=== PATIENT | female | born 1975 | race Caucasian/White ===

== ENCOUNTER → 2023-11-27 11:55 | Outpatient (REF) | payer MEDICARE, SELFPAY ==
[2023-11-27 12:59] LABS: % Basophils 0.9 % (0-2); % Eosinophils 3.2 % (0-6); % Immature Granulocytes 0.3 % (0-0.5); % Lymphocytes 29.6 % (20.5-51.1); % Monocytes 6.7 % (1.7-9.3); % Neutrophils 59.3 % (42.2-75.2); Absolute Basophils 0.1 10^3/uL (0-0.2); Absolute Eosinophils 0.3 10^3/uL (0-0.7); Absolute Lymphocytes 3.1 10^3/uL (1.2-3.4); Absolute Monocytes 0.7 10^3/uL (0.1-0.6); Absolute Neutrophils 6.3 10^3/uL (1.4-6.5); Hemoglobin 13.7 g/dL (12.0-16.0); Mean Corp Hgb Conc. 33.4 g/dL (33.0-37.0); Mean Corpuscular Hgb 29.7 pg (27.0-31.0); Mean Corpuscular Volume 88.9 fL (81.0-99.0); Mean Platelet Volume 10.9 fL (7.4-10.4); Nucleated Red Blood Cells % 0 %; Platelet Count 399 10^3/uL (130-400); Red Blood Cell Count 4.61 10^6/uL (4.20-5.40); Red Cell Dist. Width 12.3 % (11.5-14.5); White Blood Cell Count 10.6 10^3/uL (4.8-10.8)
[2023-11-27 13:17] LABS: ALT (SGPT) 43 U/L (0-35); AST (SGOT) 26 U/L (14-36); Albumin 4.3 g/dl (3.5-5.0); Alkaline Phosphatase 129 U/L (38-126); Blood Urea Nitrogen 36 mg/dl (7-17); Carbon Dioxide 33 mmol/L (22-30); Chloride 98 mmol/L (98-107); Glucose 101 mg/dl (70-99); Potassium 4.7 mmol/L (3.5-5.1); Sodium 138 mmol/L (135-145); Total Bilirubin 0.6 mg/dl (0.2-1.3); Total Protein 7.5 g/dl (6.3-8.2); eGFR > 60.00
== END ==
LOC: REG 11:55
PROVIDERS: ATTENDING PHYSICIAN Surgery Plastic and Reconstructive Surgery; FAMILY PHYSICIAN Family Medicine
DX: Z01.818 Encounter for other preprocedural examination (principal)
CPT/HCPCS: 36415; 80053; 85025; 93005

== ENCOUNTER 2023-12-01 06:34 | Inpatient (IN) | payer MEDICARE, SELFPAY ==
[2023-12-01] VITALS (22 sets, daily range): BP systolic 10–163; BP diastolic 49–95; BMI 25.4
[2023-12-01] MEDS: NORMOSOL-R 1000 IV (11:03)
[2023-12-01 11:12] LABS: Glucose - Point of Care 155 mg/dl (70-99)
--- NOTE | 2023-12-01 11:52 | W.SUR.PREOP ---
Pre-Operative Surgical Note
-
I have examined this patient prior to the performance of the scheduled procedure.
The patient's condition is unchanged from the time of the current History and
Physical and the patient is able to undergo the scheduled procedure.
[2023-12-01 13:02] LABS: Glucose - Point of Care 103 mg/dl (70-99)
--- NOTE | 2023-12-01 14:10 | W.IMMPOSTOP ---
Surgical Immed Post Op Note
-
Primary Surgeon: ALEJANDRA Brewer MD
Assisting Surgeon:
Pre-op Diagnosis: Left breast infection, capsular contracture
Post-op Diagnosis: Same
Procedure Performed: Bilateral implant removal, bilateral capsulectomies, adjacent tissue transfer
Anesthesia Type: General
Specimen / Cultures: Right and left breast capsule for permanent, left breast capsule for culture, left breast fluid for culture
Estimated Blood Loss: 50 cc
Complications: None
Operative Findings: Gross purulence surrounding left breast implant, thickened breast capsule with notable biofilm
--- NOTE | 2023-12-01 14:12 | OR.RPT ---
Operative Report
Operative Report
Surgeon: ALEJANDRA Brewer MD
Preoperative diagnosis: Left breast implant infection, capsular contracture
Postoperative diagnosis: Same
Procedure:
1. Bilateral removal of saline implants
2. Bilateral total capsulectomies
3. Adjacent tissue transfer left breast, 5 cm x 2 cm
4. Excisional left breast draining sinus
Complications: None
Anesthesia: General
Specimens:
1. Right breast capsule for permanent
2. Left breast capsule for permanent
3. Left breast tissue for culture
4. Left breast fluid for aerobic and anaerobic
Indication for procedure: Patient is a type I diabetic, brittle, with a history of bilateral breast augmentation. She suffered a right breast implant deflation many years ago. Recently suffered a left breast implant deflation. This is complicated
by bilateral capsular contracture. Her left breast implant shell eroded through the skin causing multiple wounds. She was left with a grossly purulent draining sinus from the left breast periprosthetic space through the inferior pole of the left
breast. She was referred to my office for definitive management. A plan was made for bilateral removal of implant shells with capsulectomy. The left breast draining sinus would need to be excised and culture sent. Plan was made for admission for
glucose control and infectious disease consultation for potential IV antibiotics. Risk the procedure included asymmetry, contour deformity, scar, hematoma, seroma, nipple areolar necrosis, recurrent infection. It was discussed that is not a
cosmetic procedure and therefore the focus on clearing the infection. She understood these was decided proceed and consents were signed accordingly.
Procedure in detail: Patient was identified the preoperative and the surgical site was confirmed to be the bilateral breast. The inframammary folds were marked bilaterally and the left breast inferior pole draining sinus was marked for excision.
All questions were answered and consents were confirmed. Patient was taken back to the operating room placed supine on the table. Anesthesia was induced and the patient was prepped with ChloraPrep solution and draped in usual sterile fashion.
Timeout for patient safety was performed confirmed that preoperative antibiotics had been administered and bilateral SCDs were in place. Procedure began first on the right side with the incision of the inframammary fold with a 10 blade. Bovie
electrocautery was used to dissect to the breast implant capsule. A total capsulectomy was then performed. It was noted that the implant was in the prepectoral position. As such the pectoralis muscle was left down and intact. After total
capsulectomy and removal of the saline implant shell, the capsule was sent for permanent pathology. The wound was thoroughly irrigated with double antibiotic solution mixed with Betadine and a Homero drain was left in place. 2-0 nylon was used to
suture the drain in place. The wound was closed with 3-0 and 4-0 Monocryl. Attention was then drawn to the left side where the inframammary fold incision was made with a 10 blade. Dissection continued superiorly with Bovie electrocautery until we
reached the implant capsule. The posterior aspect of the capsule was then dissected off the pectoralis muscle. Attention was then drawn anteriorly where the excision of the prior draining sinus was made between the nipple and the inframammary
fold. The this allowed for dissection down to the capsule and completion of a total capsulectomy of the left breast implant. This implant was also in the prepectoral position. Gross purulence was contained within the breast implant capsule and
the fluid cultures were sent for aerobic anaerobic bacteria. Tissue cultures were also sent as there was a prominent biofilm contained within the capsule. Left breast capsule was also sent for permanent. Due to the resultant soft tissue defect of
the skin from the sinus tract, an adjacent tissue transfer was then performed to reconstruct the lower pole of the left breast in an L-shaped advancement. This measured a total of 5 x 2 cm. The pocket was thoroughly irrigated with double
antibiotic solution and Betadine meticulous hemostasis was ensured. A 19 [place] Homero drain was placed and tunneled subcutaneously. This was sutured in place with a 2-0 nylon. The inframammary fold incision was closed with a series of 3-0 and 4-0
Monocryl. The inferior pole advancement flap was closed with a series of 3-0 Monocryl followed by 2-0 nylon. Patient tolerated the procedure well was performed without complication all counts were correct at the end the case. Patient was admitted
for tight glucose control with hospitalist and infectious disease consultations.
[2023-12-01 14:18] LABS: Glucose - Point of Care 111 mg/dl (70-99)
--- NOTE | 2023-12-01 14:57 | CON.HOSP ---
Consultation
-
Date/Time Consultation Requested: 12/01/2023
Date/Time Consultation Performed: 12/01/2023
Requesting Provider: Dr Toribio
Reason for Consultation: DM eval
Family Physician
-
Family Physician: INTERVIEWE UNKNOWN - PT NOT
Chief Complaint
-
postop DM eval
History of Present Illness
Patient 48 years old female history of diabetes mellitus type 1, hypertension, GERD, presented to the hospital with elective left breast surgery. Patient has history of bilateral breast augmentation and had a recent left breast implant deflation
complicated by bilateral capsular contracture in her left breast implant she will eroded through the skin causing multiple wounds and purulent drainage signs of the left breast periprosthetic space. She also had a right breast implant deflation
many years back. She had seen plastic surgery as outpatient and today she underwent elective procedure for bilateral removal of implants she also with capsulectomy in the left breast draining sinus excision and culture taken. We were asked to see
her in consultation. Patient currently in PACU and she is comfortable postop. She is a longstanding diabetic and had multiple complications from diabetes. Her last hemoglobin A1c on record is back in December 2019 and it was 10.8 prior to that it
was in the 12 range. She tells me last HBA1c was drawn just recently and it was over 12 and attributed to current infection and stress. Last BMP unremarkable back in 11/27/2023. Today her blood sugars have been 155, 103, and 111, last one at 1417
today. She denies any polyuria polydipsia polyphagia. She has not had any nausea or vomiting. She is hungry and surgery has ordered diet for her. She was referred to hospitalist service for evaluation.
Medical History
Past Medical History
Past Medical History: Reports Other (Diabetes mellitus type 1 with gastroparesis, retinopathy, and neuropathy; hyperlipidemia; iron deficiency anemia; hypertension; GERD.)
Past Surgical History: Reports Other (Breast implants)
Social History
Tobacco: Former Smoker
Alcohol: Occasional
Drug: None
Family History
Family History: Other (Denies history of diabetes mellitus in her family.)
Allergies / Home Medications
Allergies reflects when Allergies were last updated in [employer].
Home Medications with original date entered in [employer]
Allergy/Medication List:
Allergies
Allergy/AdvReac Type Severity Reaction Status Date / Time
No Known Allergies Allergy Verified 12/01/23 10:37
Home Medications
meclizine 25 mg tablet 25 mg PO Q8HPRN PRN dizziness 07/02/19
metoclopramide HCl 10 mg tablet 10 mg PO QID Gastrointestinal Issue 07/02/19
pantoprazole 40 mg tablet,delayed release 40 mg PO DAILYPRN PRN acid reflux 07/02/19
lisinopril 2.5 mg tablet 2.5 mg PO DAILY Blood Pressure 12/21/19
insulin glargine 100 unit/mL subcutaneous solution (Lantus U-100 Insulin) 26 units SC HS diabetes 11/30/23
insulin lispro 100 unit/mL subcutaneous pen (Humalog KwikPen (U-100) Insulin) 1 sliding scale dose SC DIRECTED diabetes 11/30/23
insulin lispro 100 unit/mL subcutaneous pen (Humalog KwikPen (U-100) Insulin) 10 unit SC TID diabetes 11/30/23
metoprolol succinate 100 mg tablet,extended release 24 hr 100 mg PO DAILY Blood Pressure 11/30/23
Review of Systems
-
A 12 point Review of Systems was completed except as noted: Yes
Physical Exam
Vital Signs
Vital Signs
Temp Pulse Resp BP Pulse Ox
97.2 F 72 11 143/79 100
12/01/23 14:02 12/01/23 14:45 12/01/23 14:45 12/01/23 14:45 12/01/23 14:45
Physical exam:
General: Well Developed, Well Nourished and No Apparent Distress
HEENT: Normocephalic, Atraumatic and Moist Mucous Membranes
Chest: Postop breast area not inspected.
Respiratory: Clear to Auscultation; Negative Wheezes, Rales or Rhonchi
Cardiac: Regular Rhythm and S1/S2
GI: Soft, Nontender and Nondistended
Musculoskeletal: No Clubbing, No Cyanosis and No Edema
Neuro: Awake, Alert and Oriented
Psych: Calm
Physical Exam
General: Other
Impression / Plan
-
IMPRESSION:
Patient 48 years of with status post bilateral removal of saline implants, bilateral total capsulectomies, excision of left breast draining sinus, and an adjacent tissue transfer of the left breast. We are seeing her in consultation with her
medical pathologies including diabetes mellitus type 1 with diabetic implication, hypertension, GERD.
Impression:
Hypertension
Diabetes mellitus type 1
Diabetic gastroparesis
Diabetic retinopathy
Diabetic neuropathy
GERD
Dyslipidemia
Chronic iron deficiency anemia
Breast capsulectomy and excision of left breast draining sinus
PLAN:
Postop care
Plastic surgery primary team
IV fluids
IV antibiotics
ID consult
Pain control
Will continue with her home insulin regimen including Lantus 26 units nightly, NovoLog 10 units before meals.
Diabetic diet
Will check blood sugars before meals and at bedtime
Will add insulin sliding scale, moderate coverage
Will monitor blood sugar and adjust medications accordingly
Will not update hemoglobin A1c since last consult recently.
DVT prophylaxis per surgery
CODE STATUS full code
--- NOTE | 2023-12-01 15:51 | CON.ID ---
Consultation
-
Date/Time Consultation Requested: 12/01/2023,
Date/Time Consultation Performed: 12/01/2023 1550
Requesting Provider: Dr. Ion Brewer
Performing Provider: Dr. Stephie Patel
Reason for Consultation: Chronic left breast drainage, s/p implant removal
Chief Complaint / Past History
Chief Complaint
Draining left breast wound
History of Present Illness
48 year old female with brittle DM1, neuropathy, gastroparesis, hx breast augmentations with saline implants in 2009. The left breast implant spontaneously ruptured in Sep 2013. She then developed a small wound lower part of breast with drainage of
yellowish brown fluid. There was redness at the bottom of her left breast. She was placed on Augmentin x 2 weeks (11/13/23 to 11/27/2023). 11/17/23 PCP took cx which was negative. 11/25/2023 breast cx again negative. She was referred to Plastics, Dr
Daniella, took her to OR today and s/p removal of bilateral breast implants with capsulectomy, excisional left breast draining sinus. Per OR note, there was gross purulence around the left breast implant. Today she reports no significant pos-op
pain. No fever or chills.
Past History
Additional Past Medical History:
DM1
Neuropathy
Retinopathy
Gastroparesis
Dyslipidemia
Hx of recurrent soft tissue MSSA abscess with 1 episode of MSSA bacteremia
Breast augmentation with saline implants (2009)
Spinal stimulator (2020)
Allergy History:
No Known Allergies Allergy (Verified 12/01/23 10:37)
Medications Reviewed: Yes
Current Antibiotics:
cefazolin
Social History
Tobacco: Former Smoker
Alcohol: Occasional
Drug: None
Personal:
Living: With Family
Family History
Family History: Not Pertinent
Review of Systems
Review of Systems
General: Negative Fever, Chills or Change in Appetite
HEENT: Negative Sinus Problems, Headache or Pharyngitis
Respiratory: Negative Dyspnea or Cough
Gasteroenterology: Other (no diarrhea); Negative Nausea or Vomiting
Genital / Urological: Negative Dysuria or Flank Pain
Neurological: Negative Headache or Dizziness
All systems: All other systems were reviewed and were negative
Vital Signs
Temp Pulse Resp BP Pulse Ox
97.7 F 72 14 124/73 99
12/01/23 15:00 12/01/23 15:45 12/01/23 15:45 12/01/23 15:45 12/01/23 15:45
Physical Exam
Physical Exam
Constitutional: No Acute Distress and Comfortable
Eyes: No Conjunctival Hemorrhage and Sclera Anicteric
Cardiovascular: Regular Rate and S1/S2
Pulmonary: Clear
Gastrointestinal: Soft, Non Tender, Non Distended and Normal Bowel Sounds
Genito-Urinary: Negative CVA Tenderness
Extremities: Negative Edema
Wound: Other (Bilateral chest dressings dry; bilateral breast ARIAN drains + blood L>R)
Neurological: AO x 3
Microbiology Results
Micro:
12/01/23 13:40 Tissue Culture - Pending
Breast - Left Gram Stain - Pending
12/01/23 13:30 Wound Culture - Pending
Breast - Left Gram Stain - Pending
12/01/23 13:30 Anaerobic Culture - Pending
Breast - Left
Assessment / Plan
# Infection of left breast implant with draining sinus
- 12/01/2023 s/p removal of bilateral implants
- Await OR left breast cx's
- In the meantime treat with empiric cefazolin pending cx data.
- Will need prolonged IV abx.
# Brittle DM1
- Discussed importance of glycemic control to promote wound healing
Care Review
Plan reviewed with: Physician (Dr. Brewer)
--- NOTE | 2023-12-01 16:16 | PTCARENOTE ---
Pt arrived to 2S in bed. Full assessment completed. L breast with +1 edema and firmer than right breast to palpation, no bruising noted. Dr Brewer made aware via tiger text. Incisions and DSG C/D/I surgical bra maintained. ARIAN drain sites clean and
intact, serosanguineous output noted. Bed locked and in the lowest position, safety maintained. Oriented to room and call torres, mother at bedside.
[2023-12-01 17:23] LABS: Glucose - Point of Care 203 mg/dl (70-99)
--- NOTE | 2023-12-01 17:26 | PTCARENOTE ---
Pt with increased edema and firmness to L breast tissue. L Nasir drain output 115 since arrival from PACU approx 1600. Dr Daniella pierson texted. Awaiting response. Will continue to monitor.
[2023-12-01] MEDS: TYLENOL 1000 MG PO (17:40)
[2023-12-01] MEDS: NOVOLOG FLEXPEN-MODERATE RESISTANCE 3 UNITS SC (17:41)
[2023-12-01] MEDS: NOVOLOG FLEXPEN 10 UNITS SC (17:42)
[2023-12-01 18:19] LABS: Glucose - Point of Care 260 mg/dl (70-99)
[2023-12-01 18:44] LABS: Glucose - Point of Care 230 mg/dl (70-99)
[2023-12-01 19:29] LABS: Glucose - Point of Care 174 mg/dl (70-99)
--- NOTE | 2023-12-01 20:12 | W.IMMPOSTOP ---
Surgical Immed Post Op Note
-
Primary Surgeon: ALEJANDRA Brewer MD
Assisting Surgeon:
Pre-op Diagnosis: Left breast hematoma
Post-op Diagnosis: Same
Procedure Performed: Incision and drainage of left breast hematoma
Anesthesia Type: General
Specimen / Cultures: None
Estimated Blood Loss: 15 cc
Complications: None
Operative Findings: Evacuated 300 cc of clot
--- NOTE | 2023-12-01 20:13 | OR.RPT ---
Operative Report
Operative Report
Surgeon: ALEJANDRA Brewer MD
Preoperative diagnosis: Left breast hematoma
Postoperative diagnosis: Same
Procedure: Incision and drainage of left breast hematoma
Complications: None
Anesthesia: General
Specimens: None
Indication for procedure: Patient underwent prior implant removal and capsulectomy earlier today. She noticed swelling of her left breast with increasing drain output. Clinical exam was consistent with hematoma. She was otherwise stable.
Decision was made to return to the operating room and evacuate the hematoma and ensure hemostasis. Risk the procedure were reviewed with the patient including recurrent bleeding, infection, delayed wound healing, seroma. She understood these risk
desired to proceed
Procedure in detail: Patient was identified in the preoperative area and the surgical site was confirmed to be left breast. Consents were signed and all questions were answered. Patient was taken back to the operating room placed spinal table.
Anesthesia was induced and the patient was prepped and draped in usual sterile fashion using Betadine solution. Timeout for patient safety was performed was confirmed that bilateral SCDs were in place and antibiotics were already administered.
Procedure began with the opening of the incision at the inframammary fold and removing the prior Homero drain. Approximately 300 cc of blood clot was encountered in the surgical bed. This was evacuated completely. The wound bed was irrigated with
normal saline. Meticulous hemostasis was obtained noting diffuse oozing without any clear arterial vessel. Surgiflo and Surgicel was placed into the wound bed after cauterizing any active bleeding. A new Homero drain was placed and the wound was
closed with 3-0 Monocryl sutures. Patient tolerated procedure well was performed out complication. All counts were correct at the end the case. She was extubated taken the PACU for further care.
[2023-12-01 20:15] LABS: Glucose - Point of Care 148 mg/dl (70-99)
[2023-12-01 21:28] LABS: Glucose - Point of Care 112 mg/dl (70-99)
[2023-12-01] MEDS: LANTUS 0.260000000000000009 UNITS SC (21:28)
[2023-12-01] MEDS: ANCEF 10 IV (21:28)
[2023-12-01] MEDS: LR 1000 IV (21:31)
--- NOTE | 2023-12-01 22:56 | TRANSFER ---
Report received from MOLECULAR BIOLOGY SCIENTIST Nikki. Pt returned from PACU @ 2054 for I&D of left breast hematoma. Gauze & tegaderm to left breast C/D/I, covered w more gauze, ABD and surgical bra. L ARIAN w dark brown o/p - s/p injection of surgiflo intraop. no
swelling noted to either breast. Pt denied pain. Call torres within reach, bed in lowest position. Assessment ongoing.
[2023-12-02] VITALS (8 sets, daily range): BP systolic 96–123; BP diastolic 49–68
[2023-12-02] MEDS: TYLENOL 1000 MG PO ×4 (00:24→16:59)
[2023-12-02] MEDS: LR 1000 IV ×3 (05:20→20:54)
[2023-12-02] MEDS: ANCEF 10 IV (05:20)
[2023-12-02 05:42] LABS: Hematocrit 29.3 % (37.0-47.0)
[2023-12-02 06:04] LABS: Blood Urea Nitrogen 26 mg/dl (7-17); Carbon Dioxide 26 mmol/L (22-30); Chloride 98 mmol/L (98-107); Estimated Creatinine Clearance 78 ml/min; Glucose 290 mg/dl (70-99); Potassium 4.8 mmol/L (3.5-5.1); Sodium 131 mmol/L (135-145); eGFR > 60.00
[2023-12-02 07:35] LABS: Glucose - Point of Care 242 mg/dl (70-99)
--- NOTE | 2023-12-02 08:28 | W.PN.HOSP.TC ---
Today's Communication/Plan
-
Continue home doses of insulin. Continue to monitor blood sugars.
Assessment / Plan
Assessment / Plan
Physical exam:
General: Well Developed, Well Nourished and No Apparent Distress
HEENT: Normocephalic, Atraumatic and Moist Mucous Membranes
Chest: Postop breast area not inspected.
Respiratory: Clear to Auscultation; Negative Wheezes, Rales or Rhonchi
Cardiac: Regular Rhythm and S1/S2
GI: Soft, Nontender and Nondistended
Musculoskeletal: No Clubbing, No Cyanosis and No Edema
Neuro: Awake, Alert and Oriented
Psych: Calm
A/P:
Impression:
Hypertension
Diabetes mellitus type 1
Hyperglycemia and hypoglycemia.
Diabetic gastroparesis
Diabetic retinopathy
Diabetic neuropathy
Hyponatremia
Dyslipidemia
Chronic iron deficiency anemia
Breast capsulectomy and excision of left breast draining sinus
PLAN:
Blood pressure stable 132/68 and 110/60
Reviewed labs and they appear unremarkable today, hemoglobin 10 bicarb 26 creatinine 0.9 and mild hyponatremia sodium 131.
Will continue with insulin regimen but I was going to try to increase Lantus 26 to 30 units nightly and NovoLog 10 to 15 units before meals but she had hypoglycemic event so we will stick with her home doses regimen for now. Lantus 26 units and
NovoLog 10 units AC.
Diabetic diet
Will cont check blood sugars before meals and at bedtime
Continue insulin sliding scale, moderate coverage
Will monitor blood sugar and adjust medications accordingly
Will not update hemoglobin A1c since last one done recently.
DVT prophylaxis per surgery
CODE STATUS full code
Anticipated Discharge: 24 - 48 hours
Subjective/Interval History
-
Date of Service: December 02, 2023
Patient denies any new complaints. No chest pain or shortness of breath.
Objective Data
-
Labs:
Laboratory Results
12/02/23
05:07
Hgb 10.0 L D
Hct 29.3 L
Sodium 131 L
Potassium 4.8
Chloride 98
Carbon Dioxide 26
BUN 26 H
Creatinine 0.9
Glucose 290 H
Calcium 8.0 L
Vital Signs:
Vital Signs
Temp Pulse Resp BP Pulse Ox
98.1 F 80 18 123/68 97
12/02/23 07:15 12/02/23 07:15 12/02/23 07:15 12/02/23 07:15 12/02/23 07:15
I&O
12/01/23 12/02/23 12/03/23
06:59 06:59 06:59
Intake Total 1909 / 1909
Output Total 350 / 350
Balance 1560 / 1560
Review of Systems
-
All other systems: Reviewed and negative
[2023-12-02] MEDS: NOVOLOG FLEXPEN-MODERATE RESISTANCE 3 UNITS SC (09:09)
[2023-12-02] MEDS: NOVOLOG FLEXPEN SC ×2 (09:14→12:23)
[2023-12-02] MEDS: NOVOLOG FLEXPEN 15 UNITS SC (09:15)
[2023-12-02 11:14] LABS: Glucose - Point of Care 94 mg/dl (70-99)
--- NOTE | 2023-12-02 11:38 | CM ---
Initial assessment completed with patient who lives with her in a one story home with 2 steps to enter, no basement. 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 No DME or services, no psychiatric history. Pharmacy is
[facility] in [place] and PCP is Dr. Sanjuanita Britton with [facility]. Patient has 2 Left breast drains and will need VN services. Possibly will need infusion services at home also. Patient preference is [facility] which accepted patient if no
infusion services needed. If infusion services are needed, will need to get a Medicare certified agency. Will continue to follow.
[2023-12-02 11:52] LABS: Glucose - Point of Care 102 mg/dl (70-99)
--- NOTE | 2023-12-02 12:21 | VNURNOTE ---
Home Health Liaison met with patient at 1115 to discuss [facility] nurse visits, schedule and homebound status. Patient is agreeable and understands that visits at home will be 2-3 x per week to assess and teach medical management and ARIAN drain care.
[facility] brochure provided with contact information. Patient is aware that VN will contact her for start of care in 1-2 days after discharge from .
[facility] referral completed by CM in [facility].
Liaison discussed w/CM possible IV antibiotics/PICC at discharge.
If IV is needed then the patient understands that the VN would need to be switched to a Medicare certified agency.
[2023-12-02] MEDS: NOVOLOG FLEXPEN-MODERATE RESISTANCE SC ×2 (12:22→18:35)
--- NOTE | 2023-12-02 12:34 | W.PN.ID1 ---
Date of Service
Date of Service: December 02, 2023
Today's Communication
Replace cefazolin with ceftriaxone pending final cx.
Assessment / Plan
# Infection of left breast implant with draining sinus
- 12/01/2023 s/p removal of bilateral implants/capsulectomy
s/p same day left breast hematoma evacuation.
- OR left breast cx's neg to date.
- Replace cefazolin with ceftriaxone 2g IV q24.
- Will need prolonged IV abx.
# Brittle DM1
- Discussed importance of glycemic control to promote wound healing
Chief Complaint
-: Other (breast implant infection)
Subjective / Review of Systems
No complaints today.
Vital Signs / Physical Exam
Vital Signs
Vital Signs
Temp Pulse Resp BP Pulse Ox
98.2 F 84 18 110/60 98
12/02/23 11:05 12/02/23 11:05 12/02/23 11:05 12/02/23 11:05 12/02/23 11:05
Physical Exam
Constitutional: No Acute Distress
Cardiovascular: Regular Rate and S1/S2
Pulmonary: Clear
Wound: Other (Left breast ARIAN drain dark blood; Right breast ARIAN drain - serosanguinous fluid)
Neurological: AO x 3
Objective Data
Lab Data
Lab Results
12/02/23 05:07
12/02/23 05:07
Estimated Creat Clear 78 ml/min 12/02/23 05:07
Most recent labs reviewed.
Micro Results:
12/01/23 13:30 Wound Culture - Preliminary
Breast - Left No growth
Gram Stain - Preliminary
12/01/23 13:30 Anaerobic Culture - Preliminary
Breast - Left Culture pending. Anaerobic cultures are examined after 3
days incubation. Additional information to follow.
12/01/23 13:40 Tissue Culture - Preliminary
Breast - Left No Growth After 18-24 Hours
Gram Stain - Preliminary
[2023-12-02] MEDS: FLUSH (NSS) 10 FLUSH IV ×2 (13:00→14:12)
[2023-12-02] MEDS: ROCEPHIN 2000 MG IV (13:00)
[2023-12-02] MEDS: ZOFRAN 4 MG IV (13:09)
--- NOTE | 2023-12-02 14:07 | W.PN.PLAS ---
Today's Communication
-
Awaiting culture data, plan for visiting nurse for IV antibiotics and drain management
Progress Note
Subjective Data
Doing well, pain well-controlled, denies shortness of breath
1 episode of hypoglycemia earlier today, insulin regimen adjusted accordingly
Infectious disease following with IV antibiotic recommendation
Subjective: Tolerating Regular Diet and Ambulatory
Objective Data
Vital Signs
Temp Pulse Resp BP Pulse Ox
98.2 F 84 18 110/60 98
12/02/23 11:05 12/02/23 11:05 12/02/23 11:05 12/02/23 11:05 12/02/23 11:05
Intake and Output
12/01/23 12/02/23 12/03/23
06:59 06:59 06:59
Intake Total 1910 / 1910
Output Total 350 / 350
Balance 1560 / 1560
Intake:
Oral fluids 460 / 460
IV fluids (Total) 1450 / 1450
Normosol 300 / 300
normosol B 150 / 150
Output:
Drain Output (Total) 350 / 350
Left Breast [place]-Bobby 260 / 260
Right Breast [place]-Bobby 90 / 90
Other:
Number of approximated LARGE 1
amounts of urine
Physical exam:
No acute distress
No increased work of breathing
Bilateral breast soft
ARIAN drain serosanguineous with appropriate output
Dressings intact
Lab Results
12/02/23 05:07
12/02/23 05:07
Microbiology Results
12/01/23 13:30 Breast - Left Wound Culture - Preliminary
No growth
12/01/23 13:30 Breast - Left Gram Stain - Preliminary
12/01/23 13:30 Breast - Left Anaerobic Culture - Preliminary
Culture pending. Anaerobic cultures are examined after 3
days incubation. Additional information to follow.
12/01/23 13:40 Breast - Left Tissue Culture - Preliminary
No Growth After 18-24 Hours
12/01/23 13:40 Breast - Left Gram Stain - Preliminary
Assessment / Plan
Status post bilateral capsulectomy and implant removal after a left breast implant infection with draining sinus through the skin.
Culture sent, no growth to date
Infectious disease following for antibiotic recs, appreciate their involvement
Hospitalist following for insulin and medical management, appreciate their recs
Will anticipate discharge after final culture data 72 hours, Thursday, at the latest. If cultures grow out tomorrow can discharge after PICC accordingly
.
[2023-12-02] MEDS: FLUSH (NSS) 1 FLUSH IV (14:10)
[2023-12-02] MEDS: STERILE WATER FOR INJECTION 20 ML IV (14:13)
[2023-12-02 17:26] LABS: Glucose - Point of Care 437 mg/dl (70-99)
--- NOTE | 2023-12-02 17:46 | PTCARENOTE ---
Patient consumed dinner prior to obtaining blood glucose. BG reading outside of normal range on blood glucometer. Stat venous draw ordered per protocol. Dr. Hester notified. Awaiting stat blood glucose result.
--- NOTE | 2023-12-02 18:00 | PTCARENOTE ---
Patient's BG reading outside of normal range on blood glucometer. Stat venous draw ordered per protocol. Dr. Hester notified. Awaiting stat blood glucose result.
[2023-12-02 18:08] LABS: Glucose 417 mg/dl (70-99)
--- NOTE | 2023-12-02 18:32 | PTCARENOTE ---
Patient refusing moderate coverage s/s insulin with dinner with concern for hypoglycemia. Requesting low resistance coverage per home meds. Dr. Hester notified and to order low resistance coverage. Patient to be rechecked in one hour following
novolog administration. Will continue to monitor.
[2023-12-02] MEDS: NOVOLOG FLEXPEN 10 UNITS SC (19:23)
[2023-12-02] MEDS: NOVOLOG FLEXPEN-LOW RESISTANCE 6 UNITS SC (19:24)
[2023-12-02] MEDS: ULTRAM 100 MG PO (21:02)
[2023-12-02 22:11] LABS: Glucose - Point of Care 192 mg/dl (70-99)
[2023-12-02 22:11] LABS: Glucose - Point of Care 238 mg/dl (70-99)
[2023-12-02] MEDS: LANTUS 0.130000000000000004 UNITS SC (23:15)
[2023-12-03] MEDS: TYLENOL 1000 MG PO ×3 (00:40→13:01)
[2023-12-03] MEDS: TYLENOL PO (00:40)
[2023-12-03] MEDS: DILAUDID 0.5 MG IV (02:28)
[2023-12-03 02:38] VITALS: BP 141/75
[2023-12-03 03:49] VITALS: BP 124/72
[2023-12-03 07:12] LABS: Glucose - Point of Care 147 mg/dl (70-99)
[2023-12-03 07:59] VITALS: BP 127/72
--- NOTE | 2023-12-03 08:28 | W.PN.HOSP.TC ---
Addendum entered and electronically signed by Amandeep Hester MD 12/03/23 14:31:
I was able to talk to her outpatient endocrinology nurse practitioner and she actually was supposed to be on 16 units before meal and 26 units long-acting and she tells me that she does have a history of noncompliance and changes some of the insulin
regimen as outpatient by herself (seems to have a similar pattern here). She does not have her hemoglobin A1c recently and the last one was back in July so we will go ahead and check one here. I told her we we will manage to the best of our
ability and to the extent that she allows us while hospitalized and will have her follow-up with her as outpatient and she is agreeable with this plan.
Original Note:
Today's Communication/Plan
-
Continue current management.
Assessment / Plan
Assessment / Plan
Physical exam:
General: Well Developed, Well Nourished and No Apparent Distress
HEENT: Normocephalic, Atraumatic and Moist Mucous Membranes
Chest: Postop breast area not inspected.
Respiratory: Clear to Auscultation; Negative Wheezes, Rales or Rhonchi
Cardiac: Regular Rhythm and S1/S2
GI: Soft, Nontender and Nondistended
Musculoskeletal: No Clubbing, No Cyanosis and No Edema
Neuro: Awake, Alert and Oriented
Psych: Calm
A/P:
Impression:
Hypertension
Diabetes mellitus type 1
Hyperglycemia and hypoglycemia.
Diabetic gastroparesis
Diabetic retinopathy
Diabetic neuropathy
Hyponatremia
Dyslipidemia
Chronic iron deficiency anemia
Breast capsulectomy and excision of left breast draining sinus
PLAN:
Blood pressure stable
Will continue with insulin regimen Lantus 26 units nightly and NovoLog 10 units before meals. She cuts half doses of her insulin at home and wants to do the same here.
I reached out to her endocrinology team- she follows up with DAVID Nieves and she will get back to me--> awaiting for callback.
PICC line placed today
Antibiotics per ID.
Diabetic diet
Will cont check blood sugars before meals and at bedtime
Continue insulin sliding scale, mild coverage now
Will monitor blood sugar and adjust medications accordingly
Will not update hemoglobin A1c since last one done recently.
DVT prophylaxis per surgery
CODE STATUS full code
Anticipated Discharge: 24 - 48 hours
Subjective/Interval History
-
Date of Service: December 03, 2023
No new complaints.
Objective Data
-
Vital Signs:
Vital Signs
Temp Pulse Resp BP Pulse Ox
98 F 81 16 127/72 97
12/03/23 07:59 12/03/23 07:59 12/03/23 07:59 12/03/23 07:59 12/03/23 07:59
I&O
12/02/23 12/03/23 12/04/23
06:59 06:59 06:59
Intake Total 1909 / 1909
Output Total 350 / 350 165 / 165
Balance 1560 / 1560 1894 / 1894
[2023-12-03] MEDS: NOVOLOG FLEXPEN-LOW RESISTANCE SC ×2 (08:35→12:43)
[2023-12-03] MEDS: NOVOLOG FLEXPEN 10 UNITS SC ×2 (08:35→13:02)
[2023-12-03] MEDS: ZOFRAN 4 MG IV (09:56)
[2023-12-03] MEDS: FLUSH (NSS) 1 FLUSH IV ×3 (09:57→14:45)
[2023-12-03] MEDS: MOTRIN 600 MG PO (10:07)
--- NOTE | 2023-12-03 11:04 | W.PN.ID1 ---
Date of Service
Date of Service: December 03, 2023
Today's Communication
-Continue empiric ceftriaxone 2g IV q24 till 01/12/24.
-Home infusion sheet submitted to [facility] [employer] [facility] on 12/01.
Assessment / Plan
# Infection of left breast implant with draining sinus
- 12/01/2023 s/p removal of bilateral implants/capsulectomy
s/p same day left breast hematoma evacuation.
- OR left breast cx's neg to date.
- Place PICC
-Continue empiric ceftriaxone 2g IV q24 till 01/12/24.
-Home infusion sheet submitted to [facility] [employer] [facility] on 12/01.
# Brittle DM1
- Discussed importance of glycemic control to promote wound healing
Chief Complaint
-: Other (breast implant infection)
Subjective / Review of Systems
No complaints today.
Vital Signs / Physical Exam
Vital Signs
Vital Signs
Temp Pulse Resp BP Pulse Ox
98 F 81 16 127/72 97
12/03/23 07:59 12/03/23 07:59 12/03/23 07:59 12/03/23 07:59 12/03/23 07:59
Physical Exam
Constitutional: No Acute Distress and Comfortable
Pulmonary: Clear
Gastrointestinal: Soft, Non Tender and Non Distended
Objective Data
Lab Data
Lab Results
12/02/23 05:07
12/02/23 17:47
Estimated Creat Clear 78 ml/min 12/02/23 05:07
Most recent labs reviewed.
Micro Results:
12/01/23 13:30 Wound Culture - Preliminary
Breast - Left No growth
Gram Stain - Preliminary
12/01/23 13:30 Anaerobic Culture - Preliminary
Breast - Left Culture pending. Anaerobic cultures are examined after 3
days incubation. Additional information to follow.
12/01/23 13:40 Tissue Culture - Preliminary
Breast - Left No Growth After 18-24 Hours
Gram Stain - Preliminary
[2023-12-03 11:50] LABS: Glucose - Point of Care 83 mg/dl (70-99)
[2023-12-03] MEDS: ROCEPHIN 2000 MG IV (14:45)
[2023-12-03] MEDS: STERILE WATER FOR INJECTION 20 ML IV (14:46)
--- NOTE | 2023-12-03 15:13 | W.DCSUMMARY ---
Discharge Summary
Discharge Data
Date of Admission: 12/01/23
Date of Discharge: 12/03/23
-
Pending Results: No
Hospital Course
Admitted after infected implant removal and capsulectomy for infectious disease consultation and pain control. ID recommended assisted IV antibiotics. Hospitalists managed diabetes medication.
Picc placed while in hospital.
Appropriate for dsicharge with close follow up.
Discharge Plan
-
Patient Disposition: Home (Routine Discharge)
Discharge Diagnosis/Procedures: s/p implant removal and capsulectomy
Condition: Good
Diet: Diabetic, Carb Controlled
Activity: No strenuous activity
Driving Restrictions: As prior to admission
Bathing Restrictions: Remove dressings if they become wet
Other Services: VN
Referrals:
UNKNOWN - PT NOT,INTERVIEWE [Family Provider] -
Stephie Patel MD [Active] - in one month
Prescriptions:
New
ibuprofen 600 mg Tablet
600 mg PO Q6HPRN PRN (Reason: moderate pain) 14 Days Qty: 30 0RF
acetaminophen 500 mg capsule
1,000 mg PO QID PRN (Reason: mild pain) Qty: 90 0RF
tramadol 50 mg Tablet
100 mg PO Q6HPRN PRN (Reason: pain) 7 Days Qty: 30 0RF
Continued
meclizine 25 MG tablet
25 mg PO Q8HPRN PRN (Reason: dizziness)
pantoprazole 40 MG tablet,delayed release (DR/EC)
40 mg PO DAILYPRN PRN (Reason: acid reflux)
metoclopramide HCl 10 MG tablet
10 mg PO QID
lisinopril 2.5 MG tablet
2.5 mg PO DAILY
insulin lispro [Humalog KwikPen Insulin] 100 unit/mL Insulin Pen
1 sliding scale dose SC DIRECTED
insulin lispro [Humalog KwikPen Insulin] 100 unit/mL Insulin Pen
10 unit SC TID
insulin glargine [Lantus U-100 Insulin] 1,000 UNITS/10 ML solution
26 units SC HS
Patient Comments:
pt took 13 Units last pm, 11/30/23.
metoprolol succinate 100 mg Tablet Extended Release 24 Hr
100 mg PO DAILY
Discharge Orders:
Discharge Patient (As Directed); Ordered 12/03/23
Ordered By: Ion Brewer
[2023-12-03 15:35] VITALS: BP 127/66
--- NOTE | 2023-12-03 15:55 | CM ---
Patient has been medically cleared for discharge to home with Infusion services with [facility]. Infusion liaison educated and trained patient on medication administration. Medication will be delivered to patient's home on 12/04/23. Patient's
mother will transport home.
[2023-12-04 12:14] LABS: Glycohemoglobin (HgbA1c) 12.6 % (4.0-5.6)
== END 2023-12-03 16:21 | disposition home health service (06) | DRG 904 ==
LOC: 2 SOUTH 06:34
PROVIDERS: ADMITTING PHYSICIAN Surgery Plastic and Reconstructive Surgery; CONSULT PHYSICIAN Hospitalist; CONSULT PHYSICIAN Internal Medicine Infectious Disease
PROC: 0HPU0JZ Removal of Synthetic Substitute from Left Breast, Open Approach (ICD-10-PCS; 2023-12-01)
PROC: 3E04329 Introduction of Other Anti-infective into Central Vein, Percutaneous Approach (ICD-10-PCS; 2023-12-01)
PROC: 0JX60ZB Transfer Chest Subcutaneous Tissue and Fascia with Skin and Subcutaneous Tissue, Open Approach (ICD-10-PCS; 2023-12-01)
PROC: 02HV33Z Insertion of Infusion Device into Superior Vena Cava, Percutaneous Approach (ICD-10-PCS; 2023-12-01)
PROC: 0HPT0JZ Removal of Synthetic Substitute from Right Breast, Open Approach (ICD-10-PCS; 2023-12-01)
PROC: 0HC Skin and Breast, Extirpation (ICD-10-PCS; 2023-12-01)
DX: T85.79XA Infection and inflammatory reaction due to other internal prosthetic devices, implants and grafts, initial encounter (principal); E87.1 Hypo-osmolality and hyponatremia; L76.32 Postprocedural hematoma of skin and subcutaneous tissue following other procedure; Z98.82 Breast implant status; Y83.1 Surgical operation with implant of artificial internal device as the cause of abnormal reaction of the patient, or of later complication, without mention of misadventure at the time of the procedure; Z87.891 Personal history of nicotine dependence; Z79.4 Long term (current) use of insulin; E10.43 Type 1 diabetes mellitus with diabetic autonomic (poly)neuropathy; I10 Essential (primary) hypertension; K31.84 Gastroparesis; E10.319 Type 1 diabetes mellitus with unspecified diabetic retinopathy without macular edema; K21.9 Gastro-esophageal reflux disease without esophagitis; E78.5 Hyperlipidemia, unspecified; D50.9 Iron deficiency anemia, unspecified; N64.89 Other specified disorders of breast; E10.65 Type 1 diabetes mellitus with hyperglycemia; E16.2 Hypoglycemia, unspecified
CPT/HCPCS: 88304; 71045; 80048; 82947; 82962; 83036; 85014; 85018; 87070; 87075; 87076; 87176; 87205

== ENCOUNTER → 2023-12-12 14:21 | Day surgery (SDC) | payer MEDICARE, SELFPAY ==
[2023-12-12] VITALS (17 sets, daily range): BP systolic 0–183; BP diastolic 53–91
--- NOTE | 2023-12-12 04:12 | ED.GENMED ---
History of Present Illness
<HESHAM Trejo - Last Filed: 12/12/23 07:02>
General
Chief Complaint: Post Operative Problem(s)
Source: patient
Time Seen by Provider: 12/12/23 04:12
Travel History
Have you had any contact with someone who has COVID-19?: No
Do you have any symptoms of coronavirus? Fever > 100 degrees, chills, cough, shortness of breath, sore throat, loss of taste or smell, muscle aches, or headache?: No
History of Present Illness
History of Present Illness:
Pt is a 48 year old female presenting for swelling, firmness, pain, and warmth of her left breast x 2 hours ago. Her dog woke her from sleep and that is when she noticed the pain. The pain started as a 6/10 but is now at an 8/10. She states since
the swelling started she feels it is 4x as swollen now, noting she feels a bulging sensation. She states the pain is now spreading towards her back and up towards her neck. She had surgery on 12/01/23 for removal of bilateral implants/capsulectomy,
and same day left breast hematoma evacuation. Patient started on empiric ceftriaxone 2g IV q24 until 01/12/24. Drains were removed 12/07/23. She notes she had a lot of drainage when the drains were first put in. states the surgeon who
performed the surgery is the same doctor who removed the drains (Rigo). Denies fevers, chills, headache, SOB, palpitations, abdominal pain, nausea, vomiting, or diarrhea.
Past History
<HESHAM Trejo - Last Filed: 12/12/23 07:02>
Past History
ED Past Medical History: IDDM and Other (Retinopathy, autonomic neuropathy, gastroparesis, peripheral neuropathy)
ED Past Surgical History: Gynecological and Other (Breast augmentation)
Social History
Tobacco: Former smoker
Alcohol: Occasional
Drug: None
Personal:
Living: with family
Family History
Family History: Other (Rheumatoid arthritis)
Review of Systems
<HESHAM Trejo - Last Filed: 12/12/23 07:02>
Review of Systems
Constitutional: Reports no symptoms
EENT: Reports no symptoms
Respiratory: Reports no symptoms
Cardiac: Reports no symptoms
ABD/GI: Reports no symptoms
: Reports no symptoms
Musculoskeletal: Reports no symptoms
Skin: Reports other (edema, firmness, and warmth of the left breast)
Neurological: Reports no symptoms
Endocrine: Reports no symptoms
Hematologic/Lymphatic: Reports no symptoms
Psychiatric: Reports no symptoms
Phy Exam
<HESHAM Trejo - Last Filed: 12/12/23 07:02>
General Physical Exam
General Presentation: mild distress
General age: appears stated age
General Skin: warm, dry and other (left breast warm, firm, and very TTP)
General Habitus: normal
General Mental: alert
General Hydration: appears well hydrated
Cardiovascular Exam
Cardiovascular Exam: regular rate/rhythm and no murmur
Pulmonary Exam
Pulmonary Exam: lungs clear and no respiratory distress
Gastrointestinal Exam
Gastrointestinal Exam: non tender, soft and non distended
Neurological Exam
Neurological Exam: alert and oriented x3
Skin Exam
Skin Exam: tenderness and warmth
Psychiatric Exam
Psychiatric Exam: anxious
Course
<HESHAM Trejo - Last Filed: 12/12/23 07:02>
Orders/Labs/Results
Orders:
Orders
12/12/23 03:47
CR Chest - 2 Views Urgent
Comment:
Reason For Exam: PICC line placement confirmation
12/12/23 04:38
US Breast Left Ltd Urgent
Comment:
Reason For Exam: post op swelling/pain-concern for abscess/hematoma
12/12/23 04:59
Complete Blood Count/With Diff Urgent
Comprehensive Metabolic Panel Urgent
Lactic Acid Urgent
12/12/23 06:30
CT Chest With Iv Contrast Urgent
Comment:
Reason For Exam: acute, severe swelling/pain L breast
12/12/23 07:02
HYDROmorphone [Dilaudid] 1 mg IV NOW STA
12/12/23 07:55
HYDROmorphone [Dilaudid] 0.5 mg IV NOW STA
12/12/23 07:55
0.9% Sodium Chloride 1000 ml [Nss] 1,000 ml IV 250 mls/hr
Abnormal Lab Results
12/12/23
04:59
RBC 2.93 L 10^6/uL
(4.20-5.40)
Hgb 8.9 L g/dL
(12.0-16.0)
Hct 26.7 L %
(37.0-47.0)
Lymphocytes % 19.2 L %
(20.5-51.1)
Sodium 134 L mmol/L
(135-145)
Glucose 272 H mg/dl
(70-99)
Calcium 8.3 L mg/dl
(8.4-10.2)
AST 136 H U/L
(14-36)
ALT 89 H U/L
(0-35)
Total Protein 5.7 L g/dl
(6.3-8.2)
Albumin 3.4 L g/dl
(3.5-5.0)
12/12/23 04:59
12/12/23 04:59
Vital Signs
Initial and Last Documented VS:
Initial Vital Signs
Temp Pulse Resp Pulse Ox
98.1 F 74 18 99
12/12/23 03:24 12/12/23 03:24 12/12/23 03:24 12/12/23 03:24
Last Documented Vital Signs
Temp Pulse Resp BP Pulse Ox
98.5 F 80 16 183/91 98
12/12/23 06:58 12/12/23 06:58 12/12/23 06:58 12/12/23 06:58 12/12/23 07:00
<Candace Brown, DO - Last Filed: 12/12/23 08:00>
Orders/Labs/Results
Orders:
Orders
12/12/23 03:47
CR Chest - 2 Views Urgent
Comment:
Reason For Exam: PICC line placement confirmation
12/12/23 04:38
US Breast Left Ltd Urgent
Comment:
Reason For Exam: post op swelling/pain-concern for abscess/hematoma
12/12/23 04:59
Complete Blood Count/With Diff Urgent
Comprehensive Metabolic Panel Urgent
Lactic Acid Urgent
12/12/23 06:30
CT Chest With Iv Contrast Urgent
Comment:
Reason For Exam: acute, severe swelling/pain L breast
12/12/23 07:02
HYDROmorphone [Dilaudid] 1 mg IV NOW STA
12/12/23 07:55
HYDROmorphone [Dilaudid] 0.5 mg IV NOW STA
12/12/23 07:55
0.9% Sodium Chloride 1000 ml [Nss] 1,000 ml IV 250 mls/hr
Abnormal Lab Results
12/12/23
04:59
RBC 2.93 L 10^6/uL
(4.20-5.40)
Hgb 8.9 L g/dL
(12.0-16.0)
Hct 26.7 L %
(37.0-47.0)
Lymphocytes % 19.2 L %
(20.5-51.1)
Sodium 134 L mmol/L
(135-145)
Glucose 272 H mg/dl
(70-99)
Calcium 8.3 L mg/dl
(8.4-10.2)
AST 136 H U/L
(14-36)
ALT 89 H U/L
(0-35)
Total Protein 5.7 L g/dl
(6.3-8.2)
Albumin 3.4 L g/dl
(3.5-5.0)
12/12/23 04:59
12/12/23 04:59
Vital Signs
Initial and Last Documented VS:
Initial Vital Signs
Temp Pulse Resp Pulse Ox
98.1 F 74 18 99
12/12/23 03:24 12/12/23 03:24 12/12/23 03:24 12/12/23 03:24
Last Documented Vital Signs
Temp Pulse Resp BP Pulse Ox
98.5 F 80 16 183/91 98
12/12/23 06:58 12/12/23 06:58 12/12/23 06:58 12/12/23 06:58 12/12/23 07:00
<HESHAM Trejo - Last Filed: 12/12/23 07:02>
MDM/Problems Addressed
Differential Diagnosis Includes:
hematoma, infection of left breast,
MDM/Problems Addressed:
left breast swelling and pain
Chronic conditions affecting care: DM
<HESHAM Trejo - Last Filed: 12/12/23 07:02>
*Critical Care Note
Total Time (30-74mins, 75-104mins- exclusive of procedures): Not Applicable
<Candace Brown DO - Last Filed: 12/12/23 08:00>
*Pulse Oximetry
Patient hypoxic: no
ED Attending Note
<HESHAM Trejo - Last Filed: 12/12/23 07:02>
-
Portions of this chart may have been created with voice recognition software.� Occasional wrong word or��sound alike� substitutions may have occurred due to the inherent limitations of voice recognition software.
<Candace Brown DO - Last Filed: 12/12/23 08:00>
ED Attending Note
Patient seen and examined by attending physician: Yes
I performed the substantive portion of visit, reviewed & personally made and approve the management plan that is documented in note by myself or KARINA.: Yes
I performed a history and physical exam of patient and discussed management with resident, I reviewed resident's note and agree with documented findings and plan of care.: Yes
ED Attending Note:
This is a 48-year-old woman who has history of insulin-dependent diabetes, bilateral breast augmentation with saline implants 2009 with spontaneous rupture of the left breast implant 2013 with development of chronic draining wound and underwent
bilateral breast implant removal and capsulotomy along with excision of left breast draining sinus December 01, 2023. She then required return to the OR for drainage of left breast hematoma.
She remained in the hospital until December 02 and was evaluated by infectious disease who recommended prolonged course of IV antibiotics. PICC line inserted and placed on once daily IV Rocephin to continue until 01/12/2024.
Patient states she had been doing well, bilateral ARIAN drains were removed by plastic surgeon, Dr. Brewer on December 06. Doing well throughout the week but then awoke this morning with abrupt onset of significant pain and swelling of her left
breast. Left breast has gotten markedly larger intense over the past 2 hours. She denies drainage from inferior breast incision. She has not had a fever nor chills. She denies chest pain or coughing or shortness of breath. She denies lying on
her left side, has been compliant with sleeping supine.
GENERAL: 48-year-old woman appears her stated age, bright and alert, appears in mild to moderate distress related to pain. Holding ice pack to her left inferior breast.
EYE: anicteric
NECK: Supple, nontender, no meningismus, no significant adenopathy.
ENT: oral mucosa is moist. No rhinorrhea.
CARDIAC: Regular rate and rhythm. no murmur.
Left breast is markedly swollen, tense and globally tender to palpation. Inferior breast incision site is dry and intact with intact sutures. There is very minimal home-incisional erythema but no palpable heat. There is no ecchymosis. Right
breast is soft and nontender.
LUNGS: Clear breath sounds bilaterally, no acute respiratory distress, no wheezes/rales/rhonchi
ABDOMEN: Soft, nondistended, without focal tenderness
NEUROLOGICAL: Alert and oriented x3, no focal neuro deficits. Gait is moffett and steady.
SKIN: Warm and dry, normal color, skin intact. No rash.
MUSCULOSKELETAL: No C/C/E. peripheral pulses are full and equal b/l. No palpable tenderness.
PSYCH: Normal and appropriate interaction.
Concern for recurrent hematoma left breast, concern for seroma formation, less likely abscess.
Will check labs and plan for ultrasound left breast. Will continue local ice.
Will plan to contact plastic surgeon, Dr. Brewer.
12/12/2023 06:30 AM
Return text from plastic surgeon recommending labs and CT.
Labs show normal white blood cell count, hemoglobin of 8.9, previously 10 on December 01.
Glucose 272, chemistries are otherwise unremarkable.
Patient currently in ultrasound.
12/12/2023 0758 AM
No official readings on ultrasound or CAT scan but preliminarily reviewed by myself which shows large likely hematoma encompassing the left breast. Hematoma does not appear to extend beyond the breast tissue.
I have sent images to Dr. Brewer and he plans to evaluate at bedside and take the patient to the OR this morning.
Patient is much more comfortable after an IV dose of Dilaudid.
She remains NPO.
Will initiate IV fluids.
Will continue to monitor glucose and continue IV pain medication as needed.
Discharge Plan
Departure
Patient Disposition: Admit
Date of Disposition: 12/12/23
Time of Disposition: 07:56
Admit to: OR
Admit to doctor: Daniella
Presentation/result/management discussed w/ accepting MD/DO: plastic surg
Condition: Fair
Discharge Problem:
recurrent hematoma left breast
Prescriptions:
No Action
pantoprazole 40 MG tablet,delayed release (DR/EC)
40 mg PO DAILYPRN PRN (Reason: acid reflux)
metoclopramide HCl 10 MG tablet
10 mg PO AC
lisinopril 2.5 MG tablet
5 mg PO DAILY
insulin lispro [Humalog KwikPen Insulin] 100 unit/mL Insulin Pen
1 sliding scale dose SC DIRECTED
insulin lispro [Humalog KwikPen Insulin] 100 unit/mL Insulin Pen
10 unit SC TID
insulin glargine [Lantus U-100 Insulin] 1,000 UNITS/10 ML solution
26 units SC HS
Patient Comments:
pt took 13 Units last pm, 11/30/23.
metoprolol succinate 100 mg Tablet Extended Release 24 Hr
150 mg PO DAILY
ibuprofen 600 mg Tablet
600 mg PO Q6HPRN PRN (Reason: moderate pain) 14 Days Qty: 30 0RF
acetaminophen 500 mg capsule
1,000 mg PO QID PRN (Reason: mild pain) Qty: 90 0RF
tramadol 50 mg Tablet
100 mg PO Q6HPRN PRN (Reason: pain) 7 Days Qty: 30 0RF
ceftriaxone 2 gram Recon Soln
2 g IV DAILY
ferrous sulfate [Iron (ferrous sulfate)] 325 mg (65 mg iron) Tablet
650 mg PO DAILY
Zofran ODT
1 tab PO PRN PRN (Reason: nausea)
Referrals:
Kotz,Sanjuanita, [Family Provider] -
Interventions
Interventions:
*Risk Screen - Suicide Last Done: 12/12/23 03:24
*General Assessment Last Done: 12/12/23 03:24
*Neglect/Abuse Screening Last Done: 12/12/23 03:24
ED- Fall Risk Assessment Last Done: 12/12/23 04:09
*ED COVID-19 Vaccine History Last Done: 12/12/23 04:09
ED-Skin Assessment Last Done: 12/12/23 07:01
[2023-12-12 05:06] LABS: % Basophils 0.8 % (0-2); % Immature Granulocytes 0.4 % (0-0.5); % Lymphocytes 19.2 % (20.5-51.1); % Monocytes 7.9 % (1.7-9.3); % Neutrophils 65.7 % (42.2-75.2); Absolute Basophils 0.1 10^3/uL (0-0.2); Absolute Eosinophils 0.5 10^3/uL (0-0.7); Absolute Lymphocytes 1.5 10^3/uL (1.2-3.4); Absolute Monocytes 0.6 10^3/uL (0.1-0.6); Hematocrit 26.7 % (37.0-47.0); Hemoglobin 8.9 g/dL (12.0-16.0); Mean Corp Hgb Conc. 33.3 g/dL (33.0-37.0); Mean Corpuscular Hgb 30.4 pg (27.0-31.0); Mean Corpuscular Volume 91.1 fL (81.0-99.0); Mean Platelet Volume 9.9 fL (7.4-10.4); Nucleated Red Blood Cells % 0 %; Platelet Count 342 10^3/uL (130-400); Red Blood Cell Count 2.93 10^6/uL (4.20-5.40); Red Cell Dist. Width 12.8 % (11.5-14.5); White Blood Cell Count 7.6 10^3/uL (4.8-10.8)
[2023-12-12 05:20] LABS: Lactic Acid 0.9 mmol/L (0.7-2.0)
[2023-12-12 05:27] LABS: ALT (SGPT) 89 U/L (0-35); AST (SGOT) 136 U/L (14-36); Albumin 3.4 g/dl (3.5-5.0); Alkaline Phosphatase 122 U/L (38-126); Blood Urea Nitrogen 12 mg/dl (7-17); Calcium 8.3 mg/dl (8.4-10.2); Carbon Dioxide 26 mmol/L (22-30); Chloride 106 mmol/L (98-107); Glucose 272 mg/dl (70-99); Potassium 4.7 mmol/L (3.5-5.1); Sodium 134 mmol/L (135-145); Total Bilirubin 0.2 mg/dl (0.2-1.3); Total Protein 5.7 g/dl (6.3-8.2); eGFR > 60.00
[2023-12-12] MEDS: DILAUDID 1 MG IV (07:19)
[2023-12-12] MEDS: DILAUDID 0.5 MG IV ×2 (08:05→12:48)
[2023-12-12] MEDS: NSS 1000 IV (08:06)
[2023-12-12 08:07] LABS: Glucose - Point of Care 273 mg/dl (70-99)
--- NOTE | 2023-12-12 14:35 | W.IMMPOSTOP ---
Surgical Immed Post Op Note
-
Primary Surgeon: ALEJANDRA Brewer MD
Assisting Surgeon:
Pre-op Diagnosis: Recurrent left breast hematoma
Post-op Diagnosis: Same
Procedure Performed: Washout of recurrent left breast hematoma, application of Floseal/Surgicel, complex closure
Anesthesia Type: General
Specimen / Cultures: None
Estimated Blood Loss: 20 cc
Complications: None
Operative Findings: Large bore Homero drain placed, 150 cc of clot removed
--- NOTE | 2023-12-12 14:35 | OR.RPT ---
Operative Report
Operative Report
Date of surgery: 12/12/2023
Surgeon: ALEJANDRA Brewer MD
Preoperative diagnosis: Recurrent left breast hematoma
Postoperative diagnosis: Same
Procedure:
1. Washout of left breast hematoma
2. Application of Floseal/Surgicel
3. Complex closure of left breast wound, 5 cm
Complications: None
Anesthesia: General
Indication for procedure: Patient is a 48-year-old female known to me for history of bilateral breast augmentation complicated by implant deflation and subsequent left breast implant shell infection. She was left with a draining wound and presented
to my office having seen another plastic surgeon. Cultures previously performed were negative to date. She was taken to the OR for bilateral capsulectomies removal of implant shells, debridement and complex closure of the left breast draining
sinus. Postop day 0 she developed a left breast hematoma. She was taken back to the operating room for evacuation and followed a routine postoperative course thereafter. Drain was removed earlier this week without issue. She noted waking up last
night with a swollen left breast and presented to the emergency department. Imaging confirmed complex fluid collection consistent with hematoma. Risks of the procedure were reviewed including infection, scar, recurrent hematoma. She understood
these risk desired to proceed consents were signed accordingly.
Procedure in detail: Patient was identified in preoperative area and the surgical site was confirmed to be the left breast. Consents were confirmed all questions were answered. Patient was taken back to the operating room placed supine on the
table. Anesthesia was induced and the patient was prepped and draped in the usual sterile fashion using ChloraPrep solution. Timeout for patient safety was performed was confirmed that preoperative antibiotics had been administered along with 1 g
of TXA and bilateral SCDs were in place. Procedure began with the removal of the sutures on the vertical aspect of the breast wound. The IM fold surgical incision was then reopened. Serosanguineous fluid was encountered along with approximately
150 cc of clot. This was evacuated and the wound bed was thoroughly irrigated with normal saline. The wound was then explored and a small area of bleeding on the medial superior aspect of the pectoralis muscle was cauterized. The remainder of the
wound bed was inspected for meticulous hemostasis and no other bleeding was noted. A large bore Homero drain was placed in the wound bed and tunneled to the prior site. Floseal and Surgicel were applied to the raw surfaces. The wound was then
closed in a complex fashion using 3-0 Monocryl sutures in the deep dermis and subcutaneous tissues along with a running 3-0 subcuticular. Patient tolerated the procedure well was performed without complication. All counts were correct at the end
the case. She was extubated taken the PACU for further care.
[2023-12-12 15:32] LABS: Glucose - Point of Care 166 mg/dl (70-99)
[2023-12-12] MEDS: TYLENOL 650 MG PO (16:39)
== END ==
LOC: EMR 03:18 → PACU 14:21
PROVIDERS: ATTENDING PHYSICIAN Surgery Plastic and Reconstructive Surgery; EMERGENCY PHYSICIAN Emergency Medicine; FAMILY PHYSICIAN Family Medicine
DX: L76.31 Postprocedural hematoma of skin and subcutaneous tissue following a dermatologic procedure (principal); Y83.8 Other surgical procedures as the cause of abnormal reaction of the patient, or of later complication, without mention of misadventure at the time of the procedure
CPT/HCPCS: 21501; 71046; 71260; 76642; 80053; 82962; 83605; 85025; 96361; 96374; 96376; 99285; Q9967